=== PATIENT | male | born 1965 | race Caucasian/White ===

== ENCOUNTER 2020-09-01 18:49 | Emergency (ER) | payer OTHER ==
[2020-09-01 19:16] VITALS: BP 116/72; PULSE 70; TEMP 98.7; BMI 25.8
[2020-09-01] MEDS ORDERED: SODIUM CHLORIDE 1,000 ML IV STA ×2 (20:13→22:47)
[2020-09-01 20:57] LABS: HEMATOCRIT 34.4 % (35.4-49); HEMOGLOBIN 11.8 GM/dl (11.7-16.9); MCH 34.5 pg (25.7-33.7); MCHC 34.2 g/dl (32.0-35.9); MEAN CELL VOLUME 100.9 fl (80-96); MEAN PLT VOLUME 10.4 fl (7.5-11.1); RBC 3.41 M/mm3 (4.00-5.60); WHITE BLOOD COUNT 6.8 K/mm3 (4.0-10.8)
[2020-09-01 20:59] LABS: ADD RBC MORPHOLOGY YES
[2020-09-01 21:35] LABS: PLATELET COUNT 66 K/MM3 (134-434)
[2020-09-01 21:37] LABS: ANISOCYTOSIS 1+; PLATELET ESTIMATE SLT DECREASE
[2020-09-01 21:48] LABS: CALCIUM 8.3 mg/dL (8.5-10.1)
[2020-09-01 21:49] LABS: ALBUMIN 2.8 g/dl (3.4-5.0); BLOOD UREA NITROGEN 14.1 mg/dL (7-18); MAGNESIUM 2.2 mg/dL (1.8-2.4)
[2020-09-01 21:52] LABS: CREATININE 0.9 mg/dL (0.55-1.3)
[2020-09-01 21:53] LABS: BILIRUBIN,TOTAL 9.8 mg/dL (0.2-1); TOT PROT 7.8 g/dl (6.4-8.2)
[2020-09-01] MEDS ORDERED: FOLIC ACID 5 MG/1 ML IVPB ONE ×2 (22:47→22:56)
[2020-09-01] MEDS ORDERED: THIAMINE HCL 200 MG/2 ML VIAL ONE (22:50)
[2020-09-01] MEDS ORDERED: FOLIC ACID 5 MG/1 ML ONE (22:52)
[2020-09-01] MEDS ORDERED: MULTIVIT INJ. ADULT COMBO WITH VIT K 1 COMBO 10 ML VIAL IV ONE (22:52)
[2020-09-01] MEDS ORDERED: THIAMINE HCL 200 MG/2 ML VIAL IVPB ONE (22:57)
[2020-09-02] MEDS ORDERED: MULTIVIT INJ. ADULT COMBO WITH VIT K 1 COMBO 10 ML VIAL IV ONE (22:55)
== END 2020-09-01 23:48 | disposition home or self-care (01) ==
LOC: FER 18:49
PROC: 3E033NZ Introduction of Analgesics, Hypnotics, Sedatives into Peripheral Vein, Percutaneous Approach (ICD-10-PCS; principal; 2020-09-01)
PROC: 3E0337Z Introduction of Electrolytic and Water Balance Substance into Peripheral Vein, Percutaneous Approach (ICD-10-PCS; 2020-09-01)
DX: K70.9 Alcoholic liver disease, unspecified (principal)
CPT/HCPCS: 36415; 76705-TC; 80053; 83735; 85025; 99285-25

== ENCOUNTER 2021-12-29 13:26 | Emergency (ER) | payer OTHER ==
[2021-12-29] MEDS ORDERED: IBUPROFEN 600 MG TABLET (FP) PO ONE ×2 (13:35→14:21)
[2021-12-29 13:37] VITALS: BP 119/65; PULSE 72; RESP 20; TEMP 98.7; BMI 23.7
== END 2021-12-29 15:32 | disposition home or self-care (01) ==
LOC: FER 13:26
PROC: 2W3DX1Z Immobilization of Left Lower Arm using Splint (ICD-10-PCS; principal; 2021-12-29)
DX: S69.92XA Unspecified injury of left wrist, hand and finger(s), initial encounter (principal); W21.02XA Struck by soccer ball, initial encounter; Y93.66 Activity, soccer
CPT/HCPCS: 73110-TC-LT-FY; 73130-TC-LT-FY; 99283-25

== ENCOUNTER 2022-04-28 13:20 | Inpatient (IN) | payer OTHER ==
[2022-04-28] MEDS ORDERED: LACTATED RINGERS SOLUTION 1000 ML INFUS.BAG IV ONE (15:40)
[2022-04-28 16:07] LABS: HEMATOCRIT 25.8 % (35.4-49); HEMOGLOBIN 8.6 G/dL (11.7-16.9); MCH 33.8 pg (25.7-33.7); MCHC 33.4 g/dl (32.0-35.9); MEAN CELL VOLUME 101.3 fl (80-96); MEAN PLT VOLUME 10.4 fl (7.5-11.1); PLATELET COUNT 24.2 10^3/uL (134-434); RBC 2.55 10^6/uL (4.00-5.60); RDW 14.4 % (11.9-15.9); WHITE BLOOD COUNT 7.6 10^3/uL (4.0-10.8)
[2022-04-28 16:21] LABS: ALBUMIN 2.2 g/dl (3.4-5.0); BILIRUBIN,TOTAL 2.6 mg/dl (0.2-1); CALCIUM 7.6 mg/dl (8.5-10); CREATININE 0.7 mg/dl (0.55-1.3)
[2022-04-28 17:11] LABS: INR 2.06 (0.83-1.09); PROTHROMBIN TIME (PATIENT) 23.9 SEC (9.7-13.0)
[2022-04-28 17:17] LABS: PLATELET ESTIMATE DECREASED
[2022-04-28 17:18] LABS: ROULEAU 1+; TARGET CELLS 2+
[2022-04-28 17:22] LABS: MAGNESIUM 1.7 mg/dL (1.8-2.4)
[2022-04-28] MEDS ORDERED: MAGNESIUM SULF 50% (8.12 MEQ/2 ML-1 GM VIAL) IVPB ONE ×2 (17:29→19:27)
[2022-04-28] MEDS ORDERED: MULTIVITAMINS (DAILY MVI) TABLET (FP) PO ONE (17:30)
[2022-04-28] MEDS ORDERED: THIAMINE HCL 100 MG TABLET (FP) PO ONE (17:30)
[2022-04-28] MEDS ORDERED: FOLIC ACID 1 MG TABLET (FP) PO ONE (17:30)
[2022-04-28] MEDS ORDERED: MAGNESIUM 1GM/D5W - 1 GM/100 ML IVPB IVPB ONE (17:34)
[2022-04-28] MEDS ORDERED: PANTOPRAZOLE SODIUM 40 MG VIAL IVPUSH ONE ×2 (17:48→18:08)
[2022-04-28] MEDS ORDERED: PANTOPRAZOLE SODIUM 40 MG VIAL ONE ×2 (18:06→18:19)
[2022-04-28] MEDS ORDERED: ONDANSETRON 4 MG/2 ML VIAL IVPUSH ONE (18:07)
[2022-04-28] MEDS ORDERED: SODIUM CHLORIDE 0.9% 1000 ML INFUS.BAG IV ONE (18:12)
[2022-04-28] MEDS ORDERED: OCTREOTIDE ACETATE 50 MCG/1 ML - 1 ML VIAL IVPUSH ONE (18:16)
[2022-04-28] MEDS ORDERED: ONDANSETRON 4 MG/2 ML VIAL ONE (18:20)
[2022-04-28] MEDS ORDERED: OCTREOTIDE ACETATE 200 MCG, OCTREOTIDE ACETATE 1,000 MCG in DEXTROSE 5%-WATER - 496 ML IVPB SCH ×4 (18:30→19:15)
[2022-04-28] MEDS: PANTOPRAZOLE SODIUM 80 MG in SODIUM CHLORIDE 100 ML IVPB SCH (18:39)
[2022-04-28] MEDS ORDERED: PHYTONADIONE 10 MG/1 ML AMP SQ ONE (19:27)
[2022-04-28] MEDS ORDERED: PHYTONADIONE 10 MG/1 ML AMP ONE (19:30)
[2022-04-28] MEDS ORDERED: MAGNESIUM SULFATE IN WATER 2 GM/50 ML IVPB IVPB ONE (19:30)
[2022-04-28] MEDS ORDERED: ONDANSETRON 4 MG/2 ML VIAL IVPUSH PRN (20:44)
[2022-04-28] MEDS ORDERED: LORazepam 2 MG/ML SDV VIAL IVPUSH PRN (20:46)
[2022-04-28] MEDS: LORazepam 2 MG/ML SDV VIAL IVPUSH PRN (21:25)
[2022-04-28] MEDS ORDERED: CEFTRIAXONE 1 GM in DEXTROSE 5%-WATER - 50 ML IVPB SCH (21:30)
[2022-04-28 21:57] LABS: HEMATOCRIT 26.2 % (35.4-49); HEMOGLOBIN 8.9 GM/dL (11.7-16.9); MCH 32.2 pg (25.7-33.7); MEAN CELL VOLUME 94.8 fl (80-96); MEAN PLT VOLUME 10.4 fl (7.5-11.1); RBC 2.77 M/mm3 (4.00-5.60); RDW 18.7 % (11.9-15.9); WHITE BLOOD COUNT 9.5 K/mm3 (4.0-10.0)
[2022-04-28 22:02] LABS: PLATELET COUNT 23 10^3/uL (134-434)
[2022-04-28 22:04] LABS: INR 1.87 (0.83-1.09); PROTHROMBIN TIME (PATIENT) 21.6 SEC (9.7-13.0)
[2022-04-28 22:12] LABS: CHLORIDE 112 mmol/L (98-107); SODIUM 143 mmol/L (136-145)
[2022-04-28 22:15] LABS: ALBUMIN 1.9 g/dl (3.4-5.0); ANION GAP 9 MMOL/L (8-16); BLOOD UREA NITROGEN 19.3 mg/dL (7-18); CO2 23 mmol/L (21-32); GLUCOSE,RANDOM 102 mg/dL (74-106)
[2022-04-28 22:18] LABS: CREATININE 0.5 mg/dL (0.55-1.3); SGOT/AST 72 U/L (15-37)
[2022-04-28 22:19] LABS: BILIRUBIN,TOTAL 2.5 mg/dL (0.2-1); TOT PROT 5.4 g/dl (6.4-8.2)
[2022-04-28 22:20] LABS: ALK PHOS 200 U/L (45-117)
[2022-04-28 22:24] LABS: CALCIUM 6.7 mg/dL (8.5-10.1); SGPT/ALT 40 U/L (13-61)
[2022-04-28] MEDS ORDERED: CALCIUM GLUCONATE 10% - 1,000 MG/10 ML VIAL IVPUSH ONE (22:27)
[2022-04-28] MEDS: CHLORHEXIDINE GLUCONATE 4% CLEANSER FOR DECOLONIZATION TP SCH (22:40)
[2022-04-28] MEDS: MUPIROCIN 2% TOPICAL OINTMENT FOR DECOLONIZATION NS SCH (22:45)
[2022-04-29] MEDS: PANTOPRAZOLE SODIUM 80 MG in SODIUM CHLORIDE 100 ML IVPB SCH ×2 (02:11→04:31)
[2022-04-29] MEDS: THIAMINE HCL 200 MG/2 ML VIAL IVPB SCH ×3 (03:37→19:55)
[2022-04-29] MEDS: LORazepam 2 MG/ML SDV VIAL IVPUSH PRN (04:30)
[2022-04-29 05:42] LABS: HEMATOCRIT 21.3 % (35.4-49); HEMOGLOBIN 7.3 GM/dL (11.7-16.9); MCH 32.3 pg (25.7-33.7); MCHC 34.3 g/dl (32.0-35.9); MEAN PLT VOLUME 8.7 fl (7.5-11.1); PLATELET COUNT 39 10^3/uL (134-434); RBC 2.27 M/mm3 (4.00-5.60); RDW 19.3 % (11.9-15.9)
[2022-04-29 07:34] LABS: INR 1.6 (0.83-1.09); PROTHROMBIN TIME (PATIENT) 18.5 SEC (9.7-13.0)
[2022-04-29 08:01] LABS: MAGNESIUM 2.2 mg/dL (1.8-2.4)
[2022-04-29 08:02] LABS: CREATININE 0.7 mg/dL (0.55-1.3)
[2022-04-29 08:03] LABS: TOT PROT 5.4 g/dl (6.4-8.2)
[2022-04-29 08:05] LABS: ALBUMIN 2.1 g/dl (3.4-5.0); CALCIUM 7.2 mg/dL (8.5-10.1)
[2022-04-29 08:06] LABS: BLOOD UREA NITROGEN 18.9 mg/dL (7-18); PHOSPHOROUS 2.9 mg/dL (2.5-4.9)
[2022-04-29 08:07] LABS: BILIRUBIN,DIRECT 1.5 mg/dL (0.0-0.2); BILIRUBIN,TOTAL 3.1 mg/dL (0.2-1)
[2022-04-29] MEDS: MUPIROCIN 2% TOPICAL OINTMENT FOR DECOLONIZATION NS SCH ×2 (11:04→21:38)
[2022-04-29] MEDS ORDERED: PHYTONADIONE 10 MG/1 ML AMP SQ ONE (11:05)
[2022-04-29] MEDS ORDERED: TETRACAINE/BENZOCAINE/BUTAMBEN 20 GM SPR TP ONE (13:17)
[2022-04-29] MEDS ORDERED: MIDAZOLAM HCL 2 MG/2 ML SINGLE DOSE VIAL ONE (13:24)
[2022-04-29 13:40] LABS: BASO % 0.4 % (0-2.0); EOS % 0.5 % (0-4.5); HEMOGLOBIN 8.1 GM/dL (11.7-16.9); LYMPH % 12.9 % (8-40); MCH 31.6 pg (25.7-33.7); MCHC 33.9 g/dl (32.0-35.9); MEAN CELL VOLUME 93.1 fl (80-96); MEAN PLT VOLUME 8.1 fl (7.5-11.1); MONO % 8.4 % (3.8-10.2); NEUT % 77.8 % (42.8-82.8); PLATELET COUNT 58 10^3/uL (134-434); RBC 2.58 M/mm3 (4.00-5.60); RDW 19.2 % (11.9-15.9); WHITE BLOOD COUNT 7.1 K/mm3 (4.0-10.0)
[2022-04-29 14:24] VITALS: BMI 25.2
[2022-04-29 16:27] LABS: INR 1.56 (0.83-1.09)
[2022-04-29] MEDS: PANTOPRAZOLE SODIUM 40 MG VIAL IVPUSH SCH (21:38)
[2022-04-29] MEDS: CHLORHEXIDINE GLUCONATE 4% CLEANSER FOR DECOLONIZATION TP SCH (21:38)
[2022-04-30 07:27] LABS: BASO % 0.5 % (0-2.0); EOS % 0.4 % (0-4.5); HEMATOCRIT 24.6 % (35.4-49); HEMOGLOBIN 8.4 GM/dL (11.7-16.9); LYMPH % 14.7 % (8-40); MCHC 34.2 g/dl (32.0-35.9); MEAN CELL VOLUME 93.6 fl (80-96); MONO % 11.7 % (3.8-10.2); NEUT % 72.7 % (42.8-82.8); PLATELET COUNT 44 10^3/uL (134-434); RBC 2.63 M/mm3 (4.00-5.60); RDW 18.6 % (11.9-15.9); WHITE BLOOD COUNT 6.8 K/mm3 (4.0-10.0)
[2022-04-30 07:35] LABS: INR 1.82 (0.83-1.09)
[2022-04-30 07:38] LABS: CHLORIDE 108 mmol/L (98-107); SODIUM 139 mmol/L (136-145)
[2022-04-30] MEDS ORDERED: PHYTONADIONE 10 MG/1 ML AMP SQ ONE (07:38)
[2022-04-30 07:41] LABS: ANION GAP 4 MMOL/L (8-16); BLOOD UREA NITROGEN 15.7 mg/dL (7-18); CALCIUM 7.4 mg/dL (8.5-10.1); CO2 28 mmol/L (21-32); GLUCOSE,RANDOM 85 mg/dL (74-106)
[2022-04-30 07:42] LABS: ALBUMIN 2.2 g/dl (3.4-5.0)
[2022-04-30 07:44] LABS: CREATININE 0.7 mg/dL (0.55-1.3); SGOT/AST 61 U/L (15-37); SGPT/ALT 37 U/L (13-61)
[2022-04-30 07:46] LABS: TOT PROT 5.5 g/dl (6.4-8.2)
[2022-04-30 07:47] LABS: ALK PHOS 133 U/L (45-117)
[2022-04-30] MEDS ORDERED: LACTATED RINGERS SOLUTION 1,000 ML/1,000 ML INFUS.BAG IV SCH (08:30)
[2022-04-30] MEDS ORDERED: PHYTONADIONE 10 MG/1 ML AMP IVPB ONE (08:44)
[2022-04-30] MEDS: PANTOPRAZOLE SODIUM 40 MG VIAL IVPUSH SCH (09:13)
[2022-04-30] MEDS: MUPIROCIN 2% TOPICAL OINTMENT FOR DECOLONIZATION NS SCH (09:14)
[2022-04-30 11:18] LABS: BILIRUBIN,DIRECT 2.7 mg/dL (0.0-0.2)
[2022-04-30 12:02] LABS: GAMMA GLUTAMYL TRANSPEPTIDASE 93 U/L (5-85)
[2022-04-30] MEDS ORDERED: ACETAMINOPHEN 325 MG TABLET (FP) PO PRN (13:10)
[2022-04-30] MEDS ORDERED: THIAMINE HCL 200 MG/2 ML VIAL IVPB SCH (13:45)
[2022-04-30] MEDS ORDERED: LORazepam 2 MG/ML SDV VIAL IVPUSH PRN (14:21)
[2022-04-30] MEDS ORDERED: ONDANSETRON 4 MG/2 ML VIAL IVPUSH PRN (18:55)
[2022-04-30] MEDS ORDERED: PANTOPRAZOLE 40 MG TABLET PO SCH (22:00)
[2022-04-30] MEDS: PANTOPRAZOLE 40 MG TABLET PO SCH (22:09)
[2022-05-01] MEDS: ACETAMINOPHEN 325 MG TABLET (FP) PO PRN ×3 (02:51→22:38)
[2022-05-01] MEDS: FOLIC ACID 1 MG TABLET (FP) PO SCH (09:18)
[2022-05-01] MEDS: PANTOPRAZOLE 40 MG TABLET PO SCH ×2 (09:18→22:00)
[2022-05-01] MEDS: THIAMINE HCL 200 MG/2 ML VIAL IVPB SCH (09:18)
[2022-05-01 09:26] VITALS: RESP 20
[2022-05-01] MEDS ORDERED: THIAMINE HCL 100 MG TABLET (FP) PO SCH (10:00)
[2022-05-01 10:33] LABS: BASO % 0.4 % (0-2.0); EOS % 1.4 % (0-4.5); HEMATOCRIT 26.2 % (35.4-49); LYMPH % 12.6 % (8-40); MCH 32.4 pg (25.7-33.7); MCHC 34.4 g/dl (32.0-35.9); MEAN CELL VOLUME 94.3 fl (80-96); MEAN PLT VOLUME 9.4 fl (7.5-11.1); MONO % 10.2 % (3.8-10.2); NEUT % 75.4 % (42.8-82.8); PLATELET COUNT 42 10^3/uL (134-434); RBC 2.78 M/mm3 (4.00-5.60); RDW 17.9 % (11.9-15.9); WHITE BLOOD COUNT 6.1 K/mm3 (4.0-10.0)
[2022-05-01 10:35] LABS: INR 1.85 (0.83-1.09); PROTHROMBIN TIME (PATIENT) 21.3 SEC (9.7-13.0)
[2022-05-01 10:58] LABS: ALBUMIN 2.2 g/dl (3.4-5.0)
[2022-05-01 11:00] LABS: BILIRUBIN,TOTAL 5.2 mg/dL (0.2-1); CALCIUM 7.3 mg/dL (8.5-10.1); TOT PROT 5.8 g/dl (6.4-8.2)
[2022-05-01 11:01] LABS: ALBUMIN 2.2 g/dl (3.4-5.0); BILIRUBIN,DIRECT 3.5 mg/dL (0.0-0.2); BLOOD UREA NITROGEN 11.9 mg/dL (7-18)
[2022-05-01 11:03] LABS: TOT PROT 5.7 g/dl (6.4-8.2)
[2022-05-01 11:04] LABS: CREATININE 0.7 mg/dL (0.55-1.3)
[2022-05-01 11:05] LABS: BILIRUBIN,TOTAL 5.3 mg/dL (0.2-1)
[2022-05-01] MEDS ORDERED: NAPH,MB-DB/K PH,MBDB POWDER PACKET PO ONE (12:52)
[2022-05-01] MEDS: PrednisoLONE 15 MG/5 ML UNIT-DOSE CUP PO SCH (13:32)
[2022-05-02] MEDS: ACETAMINOPHEN 325 MG TABLET (FP) PO PRN (06:12)
[2022-05-02 10:01] LABS: BASO % 0.1 % (0-2.0); EOS % 0.4 % (0-4.5); HEMATOCRIT 28.7 % (35.4-49); HEMOGLOBIN 9.7 GM/dL (11.7-16.9); LYMPH % 10.9 % (8-40); MCHC 33.8 g/dl (32.0-35.9); MEAN CELL VOLUME 94.7 fl (80-96); MONO % 9.1 % (3.8-10.2); NEUT % 79.5 % (42.8-82.8); PLATELET COUNT 53 10^3/uL (134-434); RBC 3.03 M/mm3 (4.00-5.60); RDW 17.9 % (11.9-15.9); WHITE BLOOD COUNT 9.3 K/mm3 (4.0-10.0)
[2022-05-02 10:10] LABS: INR 2.16 (0.83-1.09); PROTHROMBIN TIME (PATIENT) 24.9 SEC (9.7-13.0)
[2022-05-02] MEDS: THIAMINE HCL 200 MG/2 ML VIAL IVPB SCH (10:15)
[2022-05-02] MEDS: PANTOPRAZOLE 40 MG TABLET PO SCH ×2 (10:15→22:27)
[2022-05-02] MEDS: FOLIC ACID 1 MG TABLET (FP) PO SCH (10:15)
[2022-05-02] MEDS: PrednisoLONE 15 MG/5 ML UNIT-DOSE CUP PO SCH (10:16)
[2022-05-02] MEDS: THIAMINE HCL 100 MG TABLET (FP) PO SCH ×2 (10:17→22:27)
[2022-05-02 10:18] LABS: CALCIUM 7.7 mg/dL (8.5-10.1)
[2022-05-02 10:19] LABS: ALBUMIN 2.3 g/dl (3.4-5.0); BLOOD UREA NITROGEN 12.2 mg/dL (7-18)
[2022-05-02 10:21] LABS: BILIRUBIN,DIRECT 3.5 mg/dL (0.0-0.2)
[2022-05-02 10:22] LABS: CREATININE 0.8 mg/dL (0.55-1.3)
[2022-05-02 10:23] LABS: BILIRUBIN,TOTAL 4.4 mg/dL (0.2-1)
[2022-05-02 10:24] LABS: TOT PROT 6.4 g/dl (6.4-8.2)
[2022-05-02] MEDS ORDERED: PHYTONADIONE 10 MG/1 ML AMP IVPB ONE (11:30)
[2022-05-02] MEDS: MINERAL OIL/PET HY-PHL TOPICAL OINTMENT 454 GM JAR TP SCH (17:33)
[2022-05-03 09:07] LABS: BASO % 0.2 % (0-2.0); EOS % 0.7 % (0-4.5); HEMOGLOBIN 8.6 GM/dL (11.7-16.9); LYMPH % 15.9 % (8-40); MCH 31.8 pg (25.7-33.7); MEAN CELL VOLUME 96.4 fl (80-96); MEAN PLT VOLUME 8.9 fl (7.5-11.1); MONO % 15.4 % (3.8-10.2); NEUT % 67.8 % (42.8-82.8); PLATELET COUNT 43 10^3/uL (134-434); RBC 2.69 M/mm3 (4.00-5.60); WHITE BLOOD COUNT 7.7 K/mm3 (4.0-10.0)
[2022-05-03 09:18] LABS: INR 1.99 (0.83-1.09); PROTHROMBIN TIME (PATIENT) 22.9 SEC (9.7-13.0)
[2022-05-03 09:31] LABS: BLOOD UREA NITROGEN 12.7 mg/dL (7-18); CALCIUM 7.4 mg/dL (8.5-10.1)
[2022-05-03 09:34] LABS: BILIRUBIN,DIRECT 2.7 mg/dL (0.0-0.2)
[2022-05-03 09:35] LABS: CREATININE 0.6 mg/dL (0.55-1.3)
[2022-05-03 09:36] LABS: BILIRUBIN,TOTAL 3.7 mg/dL (0.2-1); TOT PROT 5.3 g/dl (6.4-8.2)
[2022-05-03] MEDS: FOLIC ACID 1 MG TABLET (FP) PO SCH (11:39)
[2022-05-03] MEDS: THIAMINE HCL 100 MG TABLET (FP) PO SCH (11:39)
[2022-05-03] MEDS: MINERAL OIL/PET HY-PHL TOPICAL OINTMENT 454 GM JAR TP SCH (11:40)
[2022-05-03] MEDS: PANTOPRAZOLE 40 MG TABLET PO SCH (11:40)
[2022-05-03] MEDS: PrednisoLONE 15 MG/5 ML UNIT-DOSE CUP PO SCH (11:40)
[2022-05-03 14:36] VITALS: BP 115/62; PULSE 76; TEMP 98.3
== END 2022-05-03 18:15 | disposition home or self-care (01) | DRG 242 ==
LOC: SUPCPDRO 13:20 → FER 13:20 → JERBED 20:30 → JICU 21:11 → J6S 04-30 18:49
PROVIDERS: ADMIT Internal Medicine Pulmonary Disease; ATTEND Internal Medicine
PROC: 0HQ1XZZ Repair Face Skin, External Approach (ICD-10-PCS; principal; 2022-04-28)
PROC: 30233K1 Transfusion of Nonautologous Frozen Plasma into Peripheral Vein, Percutaneous Approach (ICD-10-PCS; 2022-04-28)
PROC: 30233N1 Transfusion of Nonautologous Red Blood Cells into Peripheral Vein, Percutaneous Approach (ICD-10-PCS; 2022-04-29)
PROC: 30233R1 Transfusion of Nonautologous Platelets into Peripheral Vein, Percutaneous Approach (ICD-10-PCS; 2022-04-29)
PROC: 0DJ08ZZ Inspection of Upper Intestinal Tract, Via Natural or Artificial Opening Endoscopic (ICD-10-PCS; 2022-04-29)
DX: K22.6 Gastro-esophageal laceration-hemorrhage syndrome (principal); S01.81XA Laceration without foreign body of other part of head, initial encounter; D62 Acute posthemorrhagic anemia; G93.41 Metabolic encephalopathy; Y90.7 Blood alcohol level of 200-239 mg/100 ml; K21.9 Gastro-esophageal reflux disease without esophagitis; D69.6 Thrombocytopenia, unspecified; F10.129 Alcohol abuse with intoxication, unspecified; K70.10 Alcoholic hepatitis without ascites; R55 Syncope and collapse; K76.0 Fatty (change of) liver, not elsewhere classified; K80.20 Calculus of gallbladder without cholecystitis without obstruction; D68.9 Coagulation defect, unspecified; K92.2 Gastrointestinal hemorrhage, unspecified; R79.89 Other specified abnormal findings of blood chemistry; K70.30 Alcoholic cirrhosis of liver without ascites; S09.90XA Unspecified injury of head, initial encounter; W01.0XXA Fall on same level from slipping, tripping and stumbling without subsequent striking against object, initial encounter; Y92.238 Other place in hospital as the place of occurrence of the external cause
CPT/HCPCS: 0241U-QW; 36415; 36430; 70450-TC; 71045-TC-FY; 72125-TC; 74181-TC; 76705-TC; 80048; 80053; 80076; 80307; 82248; 82272; 82550; 82553; 82607; 82728; 82746; 82977; 83036; 83516; 83540; 83550; 83615; 83735; 84100; 84443; 84466; 84484; 85025; 85027; 85045; 85384; 85610; 85730; 86038; 86705; 86803; 86922; 87340; 87517; 87522; 93005; 97116-GP; 97162-GP; 99291; P9017; P9034; P9058